=== PATIENT | female | born 1965 | race Caucasian/White ===

== ENCOUNTER 2017-05-14 10:22 | Outpatient (CLI) | payer OTHER ==
[2017-05-14 17:31] LABS: TOTAL PROTEIN 6.8 g/dL (6.0-8.5)
== END 2017-05-14 10:23 ==
LOC: LAB 10:22
PROVIDERS: ATTEND Family Medicine
DX: E78.2 Mixed hyperlipidemia (principal)
CPT/HCPCS: 36415; 80053; 80061

== ENCOUNTER 2018-09-25 12:52 | Outpatient (CLI) | payer OTHER ==
[2018-09-25 13:09] LABS: MEAN CORPUSCULAR HEMOGLOBIN 32.1 pg (28.0-34.0)
[2018-09-25 13:10] LABS: BASOPHILS % 0.6 (0.0-1.5); EOSINOPHILS % 2.3 % (0.0-6.8); NEUTROPHILS # 4.3 # k/uL (1.4-7.7)
[2018-09-25 13:38] LABS: eGFR (Non-African) > 60
--- NOTE | 2018-09-26 03:08 | Diagnostic Imaging Report ---
RAVINDER CHUA [facility] [address] [facility] [address] [place] [id number]. [id number] Report Submission Date: Sep 25, 2018 2:54:44 PM [employer] Patient Study Name: FARIHA BROWN Date: Sep 25, 2018 1:13:00 PM [employer] Modality Type: CT\SR Gender: F Description: CT HEAD W/O : 65 Institution: [facility] Physician: RAVINDER CHUA HEAD CT WITHOUT CONTRAST HISTORY: Lump in the left parietal region for 3 months COMPARISON: None TECHNIQUE: Axial images were obtained from the skullbase to the vertex without IV contrast. FINDING: The ventricular system is normal in size and configuration. There is normal parenchymal attenuation. There is no positive mass effect or intra/extra-axial hemorrhage. Visualized paranasal sinuses and mastoid air cells are clear. The calvarium is intact. Within the scalp overlying the left parietal convexity, there is a well-demarcated fatty lesion measuring approximately 3.5 cm in AP dimension by approximately 6 mm transversely, consistent with a lipoma of the scalp. IMPRESSION: NO INTRACRANIAL ABNORMALITY. Fatty lesion along the left parietal scalp consistent with a lipoma as described. Electronically signed on Sep 25, 2018 2:54:44 PM [employer]ATTLE [employer]ER by: Venecia GAMINO
== END 2018-09-25 12:54 ==
LOC: RAD 12:52
PROVIDERS: ATTEND Family Medicine
DX: Z00.00 Encounter for general adult medical examination without abnormal findings (principal); R22.0 Localized swelling, mass and lump, head; L98.8 Other specified disorders of the skin and subcutaneous tissue
CPT/HCPCS: 36415; 70450; 80053; 80061; 85025